=== PATIENT | male | born 1945 | race American Indian/Alaskan Native ===

== ENCOUNTER 2016-10-09 12:59 | Day surgery (SDC) | payer MEDICARE, OTHER ==
[~2016-10-09] VITALS: Ht 172.7 cm; Wt 100.4 kg
[~2016-10-09 12:59] MED LIST: AMARYL4 MG PO; BACTRIM DS 8001 TAB PO; CALCI-MIX500 M1 PO; CELLCEPT 5500 MG/TAB PO; CINNAMON500 MG PO; CIPRO 100MG TA100 MG PO; CO Q-1010 M1 PO; COLACE 100100 MG/CAP PO; COUMADIN 5MG5 MG/TAB PO; CRESTOR5 MG PO; GLUCOPHAGE500 MG/TAB PO; JANUVIA 100MG100 MG PO; LOVENOX 100100 MG/ML SQ; MAG-OX 400400 MG/TAB PO; NATURE'S BLE1000 MCG; NEORAL25 MG PO; NEURONTIN300 MG/CAP PO; PRINIVIL40 MG PO; PROFERRIN ES12 MG; REMERON 15M15 MG/TA1 PO; TIAZAC360 MG PO; VITAMIN D32000 IU PO; ZYLOPRIM 100MG100 MG PO; ZYRTEC 10MG10 MG PO
[2016-10-09 13:19] VITALS: BP 133/95; PULSE 88; TEMP 98.3
[2016-10-09] MEDS ORDERED: THE MEDICINE S200 M2 PO (13:39)
[2016-10-09] MEDS ORDERED: ZESTRIL 10MG10 MG PO (13:45)
[2016-10-09] MEDS ORDERED: ASPIRIN 81M81 MG/TA2 PO (13:51)
[2016-10-09] MEDS ORDERED: MULTIPLE VITAMI1 CAP PO (13:52)
[2016-10-09] MEDS ORDERED: PLAVIX 75MG TAB75 MG PO (13:52)
[2016-10-09] MEDS ORDERED: B COMPLEX #11 TA1 PO (13:53)
[2016-10-09] MEDS ORDERED: VITAMIN C500 MG PO (13:53)
[2016-10-09] MEDS ORDERED: GLUCOSAMINE & C1 TAB PO (13:54)
[2016-10-09] MEDS ORDERED: MASON NATURAL1200 MG PO (13:54)
[2016-10-09 14:50] VITALS: BP 129/105; PULSE 87; TEMP 97.7
[2016-10-09 15:00] VITALS: BP 127/98; PULSE 87
[2016-10-09 15:15] VITALS: BP 128/97; PULSE 86
== END 2016-10-09 15:40 | disposition home or self-care (01) ==
LOC: SDCO 12:59
DX: D12.4 Benign neoplasm of descending colon (principal); K64.0 First degree hemorrhoids; K57.30 Diverticulosis of large intestine without perforation or abscess without bleeding; K21.9 Gastro-esophageal reflux disease without esophagitis; I10 Essential (primary) hypertension; E11.9 Type 2 diabetes mellitus without complications; M17.9 Osteoarthritis of knee, unspecified; G47.33 Obstructive sleep apnea (adult) (pediatric); E78.00 Pure hypercholesterolemia, unspecified; E78.5 Hyperlipidemia, unspecified; Z95.812 Presence of fully implantable artificial heart; Z79.01 Long term (current) use of anticoagulants; Z79.84 Long term (current) use of oral hypoglycemic drugs; Z85.51 Personal history of malignant neoplasm of bladder; Z86.010 Personal history of colon polyps; Z86.73 Personal history of transient ischemic attack (TIA), and cerebral infarction without residual deficits; Z80.0 Family history of malignant neoplasm of digestive organs
CPT/HCPCS: OP; J2704; J7030

== ENCOUNTER 2017-12-31 12:58 | Day surgery (SDC) | payer MEDICARE, OTHER ==
[~2017-12-31] VITALS: Ht 172.7 cm; Wt 99.2 kg
[2017-12-31] VITALS (7 sets, daily range): BP systolic 107–145; BP diastolic 85–99; PULSE 86–108; TEMP 97.8
[~2017-12-31 12:58] MED LIST changes: +ASPIRIN 81M81 MG/TA2 PO; +B COMPLEX #11 TA1 PO; +BIOTIN5000 MCG PO; +GLUCOSAMINE & C1 TAB PO; +MASON NATURAL1200 MG PO; +MULTIPLE VITAMI1 CAP PO; +PLAVIX 75MG TAB75 MG PO; +THE MEDICINE S200 M2 PO; +VITAMIN C500 MG PO; +ZESTRIL 10MG10 MG PO
[2017-12-31] MEDS ORDERED: CRESTOR5 MG PO (14:52)
[2017-12-31] MEDS ORDERED: BACTRIM DS 8001 TAB PO (14:53)
[2017-12-31] MEDS ORDERED: PYRIDIUM 100MG100 MG PO (14:54)
[2017-12-31] MEDS ORDERED: FLOMAX 0.40.4 MG/CAP PO (14:54)
== END 2017-12-31 19:36 | disposition home or self-care (01) ==
LOC: SDCO 12:58 → MEDICAL 18:16 → SDCO 19:36
DX: N20.2 Calculus of kidney with calculus of ureter (principal); N39.0 Urinary tract infection, site not specified; C67.9 Malignant neoplasm of bladder, unspecified; K21.9 Gastro-esophageal reflux disease without esophagitis; M10.9 Gout, unspecified; E78.5 Hyperlipidemia, unspecified; I10 Essential (primary) hypertension; G47.33 Obstructive sleep apnea (adult) (pediatric); M19.90 Unspecified osteoarthritis, unspecified site; M80.00XA Age-related osteoporosis with current pathological fracture, unspecified site, initial encounter for fracture; G20 Parkinson's disease; E11.9 Type 2 diabetes mellitus without complications; Z90.49 Acquired absence of other specified parts of digestive tract; Z79.82 Long term (current) use of aspirin; Z79.84 Long term (current) use of oral hypoglycemic drugs; Z79.01 Long term (current) use of anticoagulants; Z88.7 Allergy status to serum and vaccine; Z88.8 Allergy status to other drugs, medicaments and biological substances; Z87.891 Personal history of nicotine dependence; Z86.010 Personal history of colon polyps; Z86.718 Personal history of other venous thrombosis and embolism; Z86.73 Personal history of transient ischemic attack (TIA), and cerebral infarction without residual deficits; Z82.49 Family history of ischemic heart disease and other diseases of the circulatory system; Z80.0 Family history of malignant neoplasm of digestive organs; Z80.8 Family history of malignant neoplasm of other organs or systems
CPT/HCPCS: OP; C1769; C2617; J0690; J1100; J2704; J3010; J7030

== ENCOUNTER 2018-01-17 12:01 | Day surgery (SDC) | payer MEDICARE, OTHER ==
[~2018-01-17] VITALS: Ht 172.7 cm; Wt 96.0 kg
[~2018-01-17 12:01] MED LIST changes: +FLOMAX 0.40.4 MG/CAP PO; +PYRIDIUM 100MG100 MG PO
[2018-01-17 12:57] VITALS: BP 131/92; PULSE 96; TEMP 98.3
[2018-01-17] MEDS ORDERED: CIPRO 500MG TA500 MG PO (13:16)
[2018-01-17] MEDS ORDERED: MACRODANTIN100 PO (13:16)
[2018-01-17 15:32] VITALS: BP 121/83; PULSE 85; TEMP 98.3
[2018-01-17 15:47] VITALS: BP 130/91; PULSE 88
[2018-01-17 16:00] VITALS: BP 114/89; PULSE 88
[2018-01-17 17:31] VITALS: BP 129/89; PULSE 102; TEMP 98
[2018-01-17 19:10] VITALS: BP 117/84; PULSE 94; TEMP 97.8
[2018-01-18 00:22] VITALS: BP 121/91; PULSE 107; TEMP 98.1
[2018-01-18 03:06] VITALS: BP 113/58; PULSE 66; TEMP 98.4
[2018-01-18 08:02] VITALS: BP 105/83; PULSE 95; TEMP 98.3
[2018-01-18 11:49] VITALS: BP 117/87; PULSE 107; TEMP 97.4
[2018-01-18 16:16] VITALS: BP 110/87; PULSE 102; TEMP 98.2
[2018-01-18] MEDS ORDERED: NORCO 325 MG-51 TAB PO (17:34)
[2018-01-18] MEDS ORDERED: CIPRO 500MG TA500 MG PO (17:34)
[2018-01-18] MEDS ORDERED: COLACE 100100 MG/CAP PO (17:35)
[2018-01-18] MEDS ORDERED: PYRIDIUM 100MG100 MG PO (17:35)
== END 2018-01-18 18:14 | disposition home or self-care (01) ==
LOC: SDCO 12:01 → SURG 16:41 → SDCO 01-18 18:14
DX: N20.0 Calculus of kidney (principal); Z87.442 Personal history of urinary calculi; Z85.51 Personal history of malignant neoplasm of bladder; Z94.1 Heart transplant status; E11.9 Type 2 diabetes mellitus without complications; Z79.84 Long term (current) use of oral hypoglycemic drugs; G20 Parkinson's disease; M81.0 Age-related osteoporosis without current pathological fracture; G47.33 Obstructive sleep apnea (adult) (pediatric); Z86.718 Personal history of other venous thrombosis and embolism; K21.9 Gastro-esophageal reflux disease without esophagitis; K44.9 Diaphragmatic hernia without obstruction or gangrene; M10.9 Gout, unspecified; E78.5 Hyperlipidemia, unspecified; I10 Essential (primary) hypertension; Z87.891 Personal history of nicotine dependence
CPT/HCPCS: OP; C1769; C2617; J0690; J0696; J2405; J2704; J3010; J7030; J7515; J7517

== ENCOUNTER 2018-02-27 10:02 | Day surgery (SDC) | payer MEDICARE, OTHER ==
[~2018-02-27] VITALS: Ht 172.7 cm; Wt 97.5 kg
[~2018-02-27 10:02] MED LIST changes: +CIPRO 500MG TA500 MG PO; +MACRODANTIN100 PO; +NORCO 325 MG-51 TAB PO
[2018-02-27 10:59] VITALS: BP 133/90; PULSE 93; TEMP 98.2
[2018-02-27 13:16] VITALS: BP 109/79; PULSE 88
[2018-02-27 13:30] VITALS: BP 113/85; PULSE 86
[2018-02-27] MEDS ORDERED: NORCO 325 MG-51 TAB PO (13:40)
[2018-02-27 13:45] VITALS: BP 121/90; PULSE 82
[2018-02-27 14:00] VITALS: BP 118/92; PULSE 85
== END 2018-02-27 14:37 | disposition home or self-care (01) ==
LOC: SDCO 10:02
DX: L72.0 Epidermal cyst (principal); I10 Essential (primary) hypertension; E78.00 Pure hypercholesterolemia, unspecified; E11.9 Type 2 diabetes mellitus without complications; M85.80 Other specified disorders of bone density and structure, unspecified site; M10.9 Gout, unspecified; M19.90 Unspecified osteoarthritis, unspecified site; I80.9 Phlebitis and thrombophlebitis of unspecified site; G20 Parkinson's disease; K21.9 Gastro-esophageal reflux disease without esophagitis; G47.33 Obstructive sleep apnea (adult) (pediatric); D64.9 Anemia, unspecified; Z79.82 Long term (current) use of aspirin; Z79.02 Long term (current) use of antithrombotics/antiplatelets; Z79.84 Long term (current) use of oral hypoglycemic drugs; Z95.0 Presence of cardiac pacemaker; Z94.1 Heart transplant status; Z90.49 Acquired absence of other specified parts of digestive tract; Z88.7 Allergy status to serum and vaccine; Z88.8 Allergy status to other drugs, medicaments and biological substances; Z85.51 Personal history of malignant neoplasm of bladder; Z86.010 Personal history of colon polyps; Z86.718 Personal history of other venous thrombosis and embolism; Z86.711 Personal history of pulmonary embolism; Z86.73 Personal history of transient ischemic attack (TIA), and cerebral infarction without residual deficits
CPT/HCPCS: J0690; J1885; J2250; J2310; J2405; J2704; J3010; J7030

== ENCOUNTER 2020-04-19 09:17 | Day surgery (SDC) | payer MEDICARE, OTHER ==
[2020-04-19] VITALS (7 sets, daily range): BP systolic 94–105; BP diastolic 60–87; PULSE 73–92; TEMP 97.8–98
[~2020-04-19] VITALS: Ht 172.7 cm; Wt 96.6 kg
[2020-04-19 10:40] LABS: CALCIUM 10.2 mg/dL (8.4-10.2); CREATININE, serum 1.42 (0.66-1.25); POTASSIUM 4.3 mmol/L (3.4-5.0)
[2020-04-19] MEDS ORDERED: CIPRO 500MG TA500 MG PO (11:20)
[2020-04-19] MEDS ORDERED: XALATAN EYE DROPS OD (11:22)
[2020-04-19] MEDS ORDERED: HCTZ12.5TAB PO (11:22)
[2020-04-19] MEDS ORDERED: MAG-OX 400400 MG/TAB PO (11:23)
[2020-04-19] MEDS ORDERED: UROCIT-K 1010 MEQ PO (11:25)
[2020-04-19] MEDS ORDERED: CALCIUM CITRATE PO (11:26)
[2020-04-19] MEDS ORDERED: PYRIDIUM 100MG100 MG PO (12:19)
[2020-04-19] MEDS ORDERED: NORCO 325 MG-51 TAB PO (12:19)
--- NOTE | 2020-04-19 12:55 | NUR ---
Patient returns to room 2 per cart from PACU and is awake and alert. Temp 98.2 and sats 95% on 3L per nasal cannula. IV fluids infusing and site is free of redness. Siderails up x2 and call light in reach. Allowed to rest.
--- NOTE | 2020-04-19 13:10 | NUR ---
Resting and denies pain or nausea.
--- NOTE | 2020-04-19 13:15 | NUR ---
Stands at bedside and is able to urinate 200cc's pink urine. Tolerates activity well.
--- NOTE | 2020-04-19 13:25 | NUR ---
Sitting on edge of cart and is sipping on diet Sprite and drinking water.
--- NOTE | 2020-04-19 13:40 | NUR ---
Continues to sit on the edge of the cart and is drinking water. Offered snack and states he will eat at home.
--- NOTE | 2020-04-19 13:55 | NUR ---
States he is ready for discharge.
--- NOTE | 2020-04-19 14:05 | NUR ---
IV discontinued and site is free of redness. Assisted patient with dressing.
--- NOTE | 2020-04-19 14:10 | NUR ---
Dismissal instructions given and voices understanding of these. Follow up appointment made and given.
--- NOTE | 2020-04-19 14:17 | NUR ---
Dismissed to home driven by friend and taken to the front door per wheelchair and assisted into car by this RN with instructions in hand.
== END 2020-04-19 14:17 | disposition home or self-care (01) ==
LOC: SDCO 09:17
PROVIDERS: Nurse Anesthetist, Certified Registered
DX: N20.1 Calculus of ureter (principal); K21.9 Gastro-esophageal reflux disease without esophagitis; M10.9 Gout, unspecified; E78.5 Hyperlipidemia, unspecified; I10 Essential (primary) hypertension; E66.9 Obesity, unspecified; G47.33 Obstructive sleep apnea (adult) (pediatric); M19.90 Unspecified osteoarthritis, unspecified site; M81.0 Age-related osteoporosis without current pathological fracture; G20 Parkinson's disease; E11.9 Type 2 diabetes mellitus without complications; Z79.01 Long term (current) use of anticoagulants; Z85.51 Personal history of malignant neoplasm of bladder; Z86.010 Personal history of colon polyps; Z86.718 Personal history of other venous thrombosis and embolism; Z86.711 Personal history of pulmonary embolism; Z86.73 Personal history of transient ischemic attack (TIA), and cerebral infarction without residual deficits; Z90.49 Acquired absence of other specified parts of digestive tract; Z79.02 Long term (current) use of antithrombotics/antiplatelets; Z79.84 Long term (current) use of oral hypoglycemic drugs; Z88.8 Allergy status to other drugs, medicaments and biological substances; Z87.891 Personal history of nicotine dependence
CPT/HCPCS: C1769; C1894; C2617; J0690; J1100; J2405; J2704; J3010; Q9967

== ENCOUNTER 2021-05-04 10:42 | Outpatient (CLI) | payer MEDICARE, OTHER ==
[~2021-05-04] VITALS: Ht 172.7 cm; Wt 93.6 kg
[~2021-05-04 10:42] MED LIST changes: +CALCIUM CITRATE PO; +HCTZ12.5TAB PO; +UROCIT-K 1010 MEQ PO; +XALATAN EYE DROPS OU
[2021-05-04 12:40] VITALS: BP 110/75; PULSE 87
[2021-05-04 12:45] VITALS: BP 108/73; PULSE 87
[2021-05-04] MEDS ORDERED: AMOXICILLIN 50500 MG PO (12:59)
[2021-05-04] MEDS ORDERED: CALCIUM CITRAT200 M2 PO (12:59)
[2021-05-04] MEDS ORDERED: VITAMIN B COMPL1 SGL PO (12:59)
[2021-05-04 13:00] VITALS: BP 112/76; PULSE 86
[2021-05-04] MEDS ORDERED: SINEMET 25/101 UDTAB PO (13:00)
[2021-05-04] MEDS ORDERED: FLAXSEED OIL1000 MG PO (13:03)
[2021-05-04] MEDS ORDERED: TRIAMCINOLONE A15 G3 TP (13:07)
[2021-05-04 13:15] VITALS: BP 122/78; PULSE 85
[2021-05-04 13:30] VITALS: BP 117/77; PULSE 85
[2021-05-04 13:45] VITALS: BP 116/79; PULSE 85
--- NOTE | 2021-05-04 14:00 | NUR ---
Pt tolerated infusion and 1 hr obs period without issue. INT DC'd with catheter intact. He was assisted out by wheelchair to friend's car.
== END 2021-05-04 14:00 | disposition home or self-care (01) ==
LOC: EUO 10:42
DX: U07.1 COVID-19 (principal); E11.9 Type 2 diabetes mellitus without complications; I25.10 Atherosclerotic heart disease of native coronary artery without angina pectoris
CPT/HCPCS: M0247; Q0247

== ENCOUNTER → 2023-05-15 | Outpatient (RCR) | payer MEDICARE, OTHER ==
[~2023-05-15] MED LIST changes: +AMOXICILLIN 50500 MG PO; +CALCIUM CITRAT200 M2 PO; +FLAXSEED OIL1000 MG PO; +SINEMET 25/101 UDTAB PO; +TRIAMCINOLONE A15 G3 TP; +VITAMIN B COMPL1 SGL PO
== END ==
LOC: MKS.ESL.OT
DX: G20.A1 Parkinson's disease without dyskinesia, without mention of fluctuations (principal)

== ENCOUNTER 2023-05-16 15:42 | Outpatient (RCR) | payer MEDICARE, OTHER | END 2023-06-13 | disposition home or self-care (01) | LOC: MKS.ESL.OT | DX: G20.A1 Parkinson's disease without dyskinesia, without mention of fluctuations (principal) ==